=== PATIENT | female | born 1950 | race Caucasian/White ===

== ENCOUNTER 2016-10-11 12:16 | Emergency (ER) | payer OTHER, MEDICAID ==
[~2016-10-11] VITALS: Ht 152.4 cm; Wt 81.6 kg
--- NOTE | 2016-10-11 12:45 | NUR ---
DR MCCAULEY AT THE BEDSIDE FOR EVAL AND EXAM.
[2016-10-11] MEDS ORDERED: BENAZEPRIL (12:53)
[2016-10-11] MEDS ORDERED: NAPROSYN (12:53)
[2016-10-11] MEDS ORDERED: BLADDER MED (12:53)
[2016-10-11] MEDS ORDERED: PROPRANOLOL (12:53)
[2016-10-11] MEDS ORDERED: PROZAC (12:53)
--- NOTE | 2016-10-11 12:53 | NUR ---
PT ABLE TO NAME MEDICATIONS BUT UNABLE TO GIVE DOSAGES.
[2016-10-11 14:24] VITALS: BP 144/70
--- NOTE | 2016-10-11 14:24 | NUR ---
Patient discharged to home in stable conditon. Written and verbal after care instructions given. Patient verbalizes understanding of instructions.
== END 2016-10-11 14:29 | disposition home or self-care (01) ==
LOC: ER 12:16
DX: S16.1XXA Strain of muscle, fascia and tendon at neck level, initial encounter (principal); M54.5 Low back pain; Z88.6 Allergy status to analgesic agent; V43.62XA Car passenger injured in collision with other type car in traffic accident, initial encounter; Y93.89 Activity, other specified; Y99.8 Other external cause status; Y92.89 Other specified places as the place of occurrence of the external cause
CPT/HCPCS: 72040; 72100; 99284; A4663

== ENCOUNTER 2018-09-26 20:39 | Inpatient (IN) | payer OTHER, MEDICAID ==
[~2018-09-26] VITALS: Ht 152.4 cm; Wt 84.1 kg
[~2018-09-26 20:39] MED LIST: BENAZEPRIL; BLADDER MED; NAPROSYN; PROPRANOLOL; PROZAC
[2018-09-26 21:10] LABS: BASOPHILS % (AUTO) 0.5 % (0.0-2.0); EOSINOPHILS # (AUTO) 0.2 K/uL (0.0-0.7); HEMATOCRIT 35.5 % (31.2-41.9); HEMOGLOBIN 11.5 g/dL (10.9-14.3); LYMPHOCYTES # (AUTO) 2.7 K/uL (20.0-40.0); LYMPHOCYTES % (AUTO) 34.8 % (20.5-51.5); MEAN CORPUSCULAR HEMOGLOBIN 27.6 uug (24.7-32.8); MEAN CORPUSCULAR HGB CONC 32 g/dL (32.3-35.6); MEAN CORPUSCULAR VOLUME 85.5 fL (75.5-95.3); MONOCYTES # (AUTO) 0.7 K/uL (2.0-10.0); MONOCYTES % (AUTO) 8.5 % (0.0-11.0); NEUTROPHILS # (AUTO) 4.3 K/uL (1.8-8.9); NEUTROPHILS % (AUTO) 54.2 % (38.5-71.5); PLATELET COUNT (AUTO) 258 K/uL (179-408); RED BLOOD CELL COUNT(AUTO) 4.15 MIL/uL (3.63-4.92); WHITE BLOOD COUNT (AUTO) 7.9 K/uL (3.8-11.8)
[2018-09-26] MEDS ORDERED: LABETALOL HCL 100 MG/20 ML VIAL IV ONE (21:15)
[2018-09-26 21:18] LABS: CREATININE 0.9 mg/dL (0.6-1.3); POTASSIUM 4.2 mmol/L (3.5-5.1)
[2018-09-26] MEDS ORDERED: LABETALOL HCL 100 MG/20 ML VIAL ONE (21:19)
[2018-09-26 21:24] LABS: BILIRUBIN,DIRECT 0.1 mg/dL (0.0-0.2); BILIRUBIN,TOTAL 0.1 mg/dL (0.2-1.0)
[2018-09-26] MEDS ORDERED: hydrALAZINE HCL 20 MG/1 ML VIAL IV ONE ×2 (22:00→23:15)
[2018-09-26] MEDS ORDERED: hydrALAZINE HCL 20 MG/1 ML VIAL ONE (22:06)
[2018-09-26] MEDS ORDERED: OXYBUTYNIN PO (23:05)
[2018-09-26] MEDS ORDERED: FLUO20CA36 PO (23:05)
[2018-09-27] MEDS ORDERED: HYDROCODONE/APAP 5-325MG TABLET PO PRN (00:15)
[2018-09-27] MEDS ORDERED: CLONIDINE HCL 0.1 MG TABLET PO PRN (00:15)
[2018-09-27] MEDS ORDERED: MORPHINE SULFATE 2 MG/1 ML DISP.SYRIN IV PRN ×3 (00:15→11:30)
[2018-09-27] MEDS ORDERED: MAGNESIUM HYDROXIDE 30 ML LIQUID UDC PO PRN (00:15)
[2018-09-27] MEDS ORDERED: ONDANSETRON 4 MG/2 ML VIAL IV PRN (00:15)
--- NOTE | 2018-09-27 01:33 | NUR ---
Pt. admitted to TELE 317, under care of Dr. Alvarez. Belongs List completed. Report given to nurse Zo.
[2018-09-27 01:45] VITALS: BP 171/83
[2018-09-27] MEDS: TEMAZEPAM 15 MG CAPSULE PO PRN (02:08)
[2018-09-27 02:30] VITALS: BP 152/67
[2018-09-27 04:00] VITALS: BP 150/77
--- NOTE | 2018-09-27 05:45 | NUR ---
pt slept well through the night and was easily awoken, pt denies having any chest pain or difficulty breathing. pt feels like she has weakness but strengths are equal bilaterally. pt has been sinus rhythm/sinus boone on the monitor with scattered PAC's, all needs met, safety measures are in place, call light within reach, bed alarm is on.
[2018-09-27] MEDS: ACETAMINOPHEN 325 MG TABLET PO PRN ×2 (06:29→19:30)
--- NOTE | 2018-09-27 07:05 | NUR ---
RECEIVED PATIENT IN BED LAYING COMFORTABLY WITH DX OF CHEST PAIN , NO C/O PAIN AT THIS TIME. , ALERT AND ORIENTED, ABLE TO MAKE NEEDS KNOW. IV ON THE RIGHT AC, INTACT AND PATENT. PATIENT AMBULATORY. KEPT CLEAN AND DRY AT ALL TIMES. PROVIDE SAFETY AND COMFORT AT ALL TIMES. WILL CONTINUE TO MONITOR AND TREATMENT PLAN.
[2018-09-27 07:16] LABS: MAGNESIUM 2.2 mg/dL (1.8-2.4)
[2018-09-27] MEDS: AMLODIPINE 5 MG TABLET PO SCH (09:57)
[2018-09-27] MEDS: ASPIRIN 81 MG TAB.CHEW PO SCH (09:57)
[2018-09-27 11:32] VITALS: BP 147/58
[2018-09-27 15:37] VITALS: BP 158/65
[2018-09-27] MEDS ORDERED: FLUO40CA49 PO (18:04)
[2018-09-27] MEDS ORDERED: BENA20TA9 PO (18:04)
[2018-09-27] MEDS ORDERED: PROP80CA PO (18:05)
[2018-09-27] MEDS ORDERED: OXYB5TAB11 PO (18:05)
--- NOTE | 2018-09-27 19:40 | NUR ---
Received patient awake and alert in bed. No signs of acute distress noted. No complaints of pain or SOB. Heplock on the right AC is intact and patent. Patient able to make needs known. Safety measures initiated. Bed is low and locked, Call light within reach. Will continue to monitor
[2018-09-27 20:06] VITALS: BP 145/60
[2018-09-28 00:06] VITALS: BP 144/62
[2018-09-28] MEDS: TEMAZEPAM 15 MG CAPSULE PO PRN (01:20)
[2018-09-28] MEDS: ACETAMINOPHEN 325 MG TABLET PO PRN ×2 (01:57→11:10)
[2018-09-28 04:00] VITALS: BP 141/52
[2018-09-28 06:09] LABS: CREATININE 0.8 mg/dL (0.6-1.3); POTASSIUM 4.1 mmol/L (3.5-5.1)
[2018-09-28 06:17] LABS: BASOPHILS % (AUTO) 0.4 % (0.0-2.0); EOSINOPHILS # (AUTO) 0.2 K/uL (0.0-0.7); EOSINOPHILS % (AUTO) 2.5 % (0.0-7.0); HEMATOCRIT 35.5 % (31.2-41.9); HEMOGLOBIN 11.7 g/dL (10.9-14.3); LYMPHOCYTES # (AUTO) 2.9 K/uL (20.0-40.0); LYMPHOCYTES % (AUTO) 46.1 % (20.5-51.5); MEAN CORPUSCULAR HGB CONC 33 g/dL (32.3-35.6); MEAN CORPUSCULAR VOLUME 85.2 fL (75.5-95.3); MONOCYTES # (AUTO) 0.5 K/uL (2.0-10.0); MONOCYTES % (AUTO) 8.6 % (0.0-11.0); NEUTROPHILS # (AUTO) 2.7 K/uL (1.8-8.9); NEUTROPHILS % (AUTO) 42.4 % (38.5-71.5); PLATELET COUNT (AUTO) 260 K/uL (179-408); RED BLOOD CELL COUNT(AUTO) 4.17 MIL/uL (3.63-4.92); WHITE BLOOD COUNT (AUTO) 6.3 K/uL (3.8-11.8)
--- NOTE | 2018-09-28 06:24 | NUR ---
Patient complained of left sided headache with PRN pain medication x1 and tylenol x1 given and was effective. No acute distress noted. No complaints of SOB. IV on the right forearm is intact and patent. Safety measures given.
--- NOTE | 2018-09-28 07:15 | NUR ---
RECEIVD PATIENT ON BED AWAKE AAOX4 NO ACUTE DISTRESS NOTED ON TELE SR. IV ACCESS ON RIGHT AC #20 INTACT AND PATENT. NO CHEST PAIN/SOB NOTED. NO COMPLAINTS OF PAIN/DISCOMFORT AT THIS TIME. COMFORT MEASURES PROVIDED. CALL LIGHT WITHIN REACH. WILL CONTINUE TO MONITOR CLOSELY.
[2018-09-28] MEDS: ASPIRIN 81 MG TAB.CHEW PO SCH (08:29)
[2018-09-28] MEDS: AMLODIPINE 5 MG TABLET PO SCH (08:30)
[2018-09-28] MEDS ORDERED: ATOR20TA PO (09:27)
[2018-09-28] MEDS ORDERED: ASPI81TA31 PO (09:27)
[2018-09-28 11:40] VITALS: BP 158/74
--- NOTE | 2018-09-28 15:20 | NUR ---
PATIENT DISCHARGED TO HOME IN STABLE CONDITION. DISCHARGE PAPERS AND INSTRUCTIONS GIVEN AND EXPLAINED TO PATIENT. PRESCRIPTIONS ALSO GIVEN. PATIENT REFUSED MEDICATION EDUCATION FROM PHARMACIST. IV ACCESS REMOVED, IV CATHETER INTACT. WRISTBAND REMOVED AND DISPOSED OFF PROPERLY. PATIENT LEFT HOSPITAL ACCOMPANIED BY ELMER (DAUGHTER) VIA PRIVATE CAR.
== END 2018-09-28 15:30 | disposition home or self-care (01) | DRG 69 ==
LOC: ER 20:39 → MEDSURG3 09-27 01:00 → TELE3 09-27 01:25
PROVIDERS: ADMIT Nurse Practitioner Acute Care; ATTEND Family Medicine
DX: G45.9 Transient cerebral ischemic attack, unspecified (principal); N17.9 Acute kidney failure, unspecified; J98.11 Atelectasis; M50.10 Cervical disc disorder with radiculopathy, unspecified cervical region; R07.9 Chest pain, unspecified; R00.1 Bradycardia, unspecified; N32.81 Overactive bladder; Z80.3 Family history of malignant neoplasm of breast; R32 Unspecified urinary incontinence; I11.9 Hypertensive heart disease without heart failure; F32.9 Major depressive disorder, single episode, unspecified
CPT/HCPCS: 36415; 70030-TC; 70450; 71045; 83735; 84100; 85025; 85730; 93005; 93307; 97110; 97530; A4663; G0378; J0360; J3490